=== PATIENT | female | born 1985 | race Caucasian/White ===

== ENCOUNTER → 2023-12-28 07:58 | Outpatient (REF) | payer BC, SELFPAY | LOC: PNTC 07:58 | PROVIDERS: ATTENDING PHYSICIAN Obstetrics & Gynecology | DX: O09.519 Supervision of elderly primigravida, unspecified trimester (principal) | CPT/HCPCS: 76811 ==

== ENCOUNTER → 2024-02-23 07:56 | Outpatient (REF) | payer BC, SELFPAY | LOC: PNTC 07:56 | PROVIDERS: ATTENDING PHYSICIAN Obstetrics & Gynecology | DX: O09.519 Supervision of elderly primigravida, unspecified trimester (principal) | CPT/HCPCS: 76816 ==

== ENCOUNTER → 2024-04-05 08:03 | Outpatient (REF) | payer BC, SELFPAY | LOC: PNTC 08:03 | PROVIDERS: ATTENDING PHYSICIAN Obstetrics & Gynecology | DX: O09.519 Supervision of elderly primigravida, unspecified trimester (principal) | CPT/HCPCS: 76816 ==

== ENCOUNTER 2024-05-13 23:22 | Inpatient (IN) | payer BC, SELFPAY ==
[2024-05-13 23:23] VITALS: BMI 28.6
[2024-05-13 23:51] VITALS: BP 154/73
[2024-05-14] MEDS: LR 1000 IV ×3 (00:10→15:57)
[2024-05-14 00:17] LABS: % Basophils 0.3 % (0-2); % Eosinophils 0.3 % (0-6); % Immature Granulocytes 0.4 % (0-0.5); % Lymphocytes 12.3 % (20.5-51.1); % Monocytes 8.4 % (1.7-9.3); % Neutrophils 78.3 % (42.2-75.2); Absolute Immature Granulocytes 0.1 10^3/uL (0-0.05); Absolute Lymphocytes 1.5 10^3/uL (1.2-3.4); Absolute Neutrophils 9.4 10^3/uL (1.4-6.5); Hematocrit 33.1 % (37.0-47.0); Hemoglobin 11.6 g/dL (12.0-16.0); Mean Corpuscular Volume 88.5 fL (81.0-99.0); Mean Platelet Volume 10.3 fL (7.4-10.4); Nucleated Red Blood Cells % 0 %; Platelet Count 286 10^3/uL (130-400); Red Blood Cell Count 3.74 10^6/uL (4.20-5.40); Red Cell Dist. Width 12.7 % (11.5-14.5)
[2024-05-14] MEDS: CYTOTEC 25 MICROGRAM PO (00:22)
[2024-05-14 00:29] LABS: ALT (SGPT) 13 U/L (0-35); AST (SGOT) 19 U/L (14-36); Albumin 3.6 g/dl (3.5-5.0); Alkaline Phosphatase 130 U/L (38-126); Blood Urea Nitrogen 11 mg/dl (7-17); Calcium 9.5 mg/dl (8.4-10.2); Carbon Dioxide 18 mmol/L (22-30); Chloride 106 mmol/L (98-107); Estimated Creatinine Clearance > 125 ml/min; Glucose 103 mg/dl (70-99); Potassium 4.1 mmol/L (3.5-5.1); Sodium 134 mmol/L (135-145); Total Bilirubin 0.3 mg/dl (0.2-1.3); Total Protein 6.7 g/dl (6.3-8.2); eGFR > 60.00
[2024-05-14 02:01] LABS: Urine Protein 11 mg/dl
[2024-05-14] MEDS: CYTOTEC 50 MICROGRAM PO (04:00)
[2024-05-14] MEDS: CYTOTEC PO ×2 (08:37→15:58)
[2024-05-14] MEDS: STADOL 1 MG IV (09:24)
[2024-05-14] MEDS: PHENERGAN 50.5 MG IV (09:27)
[2024-05-14] MEDS: PITOCIN 30 UNITS/NSS 500 ML IV (09:29)
[2024-05-14] MEDS: SUBLIMAZE 100 MCG EPIDURAL (09:55)
[2024-05-14] MEDS: FENTANYL/BUPIVACAINE 100 EPIDURAL ×2 (09:56→16:49)
[2024-05-14] MEDS: TYLENOL 650 MG PO (23:40)
[2024-05-14] MEDS: MOTRIN 600 MG PO (23:40)
[2024-05-15] MEDS: CYTOTEC PO ×2 (00:13)
[2024-05-15 04:14] LABS: Hematocrit 30.7 % (37.0-47.0); Hemoglobin 10.6 g/dL (12.0-16.0)
[2024-05-15] MEDS: FEOSOL 325 MG PO (09:35)
[2024-05-15] MEDS: MOTRIN 600 MG PO ×3 (09:38→21:26)
[2024-05-15] MEDS: TYLENOL 650 MG PO ×3 (09:38→21:26)
[2024-05-15] MEDS: SENOKOT-S 1 TABLET PO (21:26)
[2024-05-16] MEDS: TYLENOL 650 MG PO (06:30)
[2024-05-16] MEDS: MOTRIN 600 MG PO (06:30)
[2024-05-16] MEDS: M-M-R II 0.5 ML SC (08:04)
[2024-05-16] MEDS: FEOSOL 325 MG PO (08:05)
[2024-05-17 11:30] LABS: Syphilis/T. pallidum Ab Reflex Negative (Negative)
== END 2024-05-16 13:00 | disposition home or self-care (01) | DRG 807 ==
LOC: LDRP 23:22
PROVIDERS: Obstetrics & Gynecology; Student in an Organized Health Care Education/Training Program; ADMITTING PHYSICIAN Obstetrics & Gynecology
PROC: 10E0XZZ Delivery of Products of Conception, External Approach (ICD-10-PCS; 2024-05-13)
PROC: 3E0234Z Introduction of Serum, Toxoid and Vaccine into Muscle, Percutaneous Approach (ICD-10-PCS; 2024-05-16)
DX: O76 Abnormality in fetal heart rate and rhythm complicating labor and delivery (principal); Z37.0 Single live birth; Z3A.39 39 weeks gestation of pregnancy; Z23 Encounter for immunization; O13.4 Gestational [pregnancy-induced] hypertension without significant proteinuria, complicating childbirth
CPT/HCPCS: 88307; 36415; 80053; 82570; 84156; 85014; 85018; 85025; 86780; 86850; 86900; 86901; 90707